=== PATIENT | male | born 1975 | race Caucasian/White ===

== ENCOUNTER 2018-06-10 22:02 | Inpatient (IN) | payer OTHER ==
[~2018-06-10] VITALS: Ht 175.3 cm; Wt 111.1 kg
--- NOTE | ~2018-06-10 | OP ---
[facility] [address] [place] [address] OPERATIVE REPORT Name: JOSIE GOTTI Room: [address] .R.#: [id number] Admission: 06/10/18 Attend Phys: Albino Mclean MD Discharge: Date of : 79 Report #: [id number] THIS REPORT FOR: //name// CC: Albino Gilliam DATE OF SERVICE: 06/12/2018 PREOPERATIVE DIAGNOSIS: Right ureteral stone. POSTOPERATIVE DIAGNOSIS: Right ureteral stone. PROCEDURE PERFORMED: Cystoscopy with right retrograde pyelogram, ureteroscopy, laser lithotripsy and stent placement. SURGEON: Albino Iverson MD ANESTHESIA: General. ESTIMATED BLOOD LOSS: Minimal. COMPLICATIONS: None. INDICATION FOR PROCEDURE: This is a 43-year-old gentleman who presented with acute right flank pain, was admitted to the Emergency Room with an approximately 5 mm right distal ureteral stone. He has been unable to pass it spontaneously. His options for management have been discussed in detail. He has elected to proceed with cystoscopy with right retrograde pyelogram, ureteroscopy, laser lithotripsy and stent placement. The risks, benefits, possible complications were explained in detail to the patient. He has a chance to ask questions, which were answered to his satisfaction and he elects to proceed. DESCRIPTION OF PROCEDURE: After obtaining informed consent, the patient was taken to the operating room and placed in supine position. After adequate general anesthesia and IV antibiotics, he was prepped and draped in the dorsal lithotomy position. A 21-Turkish cystoscope with 30-degree lens was introduced into the urethra, which was normal caliber. Down the prostatic urethra showed mild enlargement. Upon entering the bladder, bladder systematically inspected. There was a stone immediately noticed at the ureterovesical junction, partially into the bladder. No other tumors or diverticula were noted. The stone was attempted to be dislodged using the end of the scope and with the Pollack catheter, but it would not do so, it appeared to be lodged within the distal ureter, so a sensor guidewire was attempted to be passed around the stone. It would not pass easily, so a 200 micron holmium laser fiber was then used to fragment part of the stone. Part of the stone passed proximally into the ureter, so a sensor wire was then easily [place] [address] OPERATIVE REPORT Name: JOSIE GOTTI Room: [address] IN [facility].#: [id number] Admission: 06/10/18 Attend Phys: Albino Mclean MD Discharge: Date of : 79 Report #: [id number] alongside the stone. A retrograde pyelogram was performed using a 5-Turkish open-ended ureteral catheter revealing a normal caliber ureter and no evidence of any pelvic caliectasis. There was a small filling defect in the distal ureter consistent with his known stone. The wire was replaced and rigid ureteroscopy was carried out alongside the wire where the stone fragment was immediately encountered. Using a Zero Tip nitinol basket it was basketed and retrieved atraumatically through the ureter, it was passed off the table and sent to lab for analysis. No other stones or evidence of any ureteral injury was noted on ureteroscopy all the way up to the mid ureter. A 4.8 x 28 cm double-J stent was then passed over the wire into the renal pelvis under fluoroscopic guidance. A good coil was noted overlying the renal pelvis and good coil was directly visualized in the bladder. The bladder was drained. Uro-Jet was applied per urethra and the patient was extubated and taken to recovery room in good condition. Plan is to follow up in 1-2 weeks' time for stent removal. By: [id number] Iverson MD /justin
[2018-06-10 22:13] VITALS: BP 160/96
[2018-06-10] MEDS ORDERED: COUMADIN 1MG TAB1 M1 PO (22:17)
[2018-06-10] MEDS ORDERED: TRAZODONE 150150 M1 PO (22:17)
[2018-06-10 22:23] LABS: URINE BLOOD 3+ (Negative); URINE CLARITY CLOUDY; URINE COLOR BROWN; URINE GLUCOSE-RANDOM NEGATIVE (Negative); URINE KETONES TRACE (Negative); URINE LEUKOCYTES-REFLEX NEGATIVE (Negative); URINE NITRITE-REFLEX NEGATIVE (Negative); URINE PROTEIN 2+ (Negative); URINE SPECIFIC GRAVITY >= 1.030 (1.005-1.030); URINE UROBILINOGEN 0.2 E.U./dl (0.2-1.0)
[2018-06-10 22:25] LABS: ICTOTEST (BILI CONFIRMATORY) Negative (Negative); URINE BILIRUBIN 1+ (Negative)
[2018-06-10 22:26] LABS: URINE RBC >20 Many /HPF (0-2); URINE WBC-REFLEX 0-5 Rare /HPF (0-5)
[2018-06-10 22:28] LABS: SQUAMOUS NONE SEEN /LPF (0-3)
[2018-06-10 22:29] LABS: CRYSTALS None Seen /LPF (None Seen); YEAST-REFLEX Present (None Seen)
[2018-06-10 22:30] LABS: HYALINE CASTS 0-3 Few /LPF (None Seen); MUCUS 0-3 Light strn/LPF (None Seen)
[2018-06-10 22:31] LABS: BACTERIA-REFLEX 1-9 Few /HPF (None Seen)
[2018-06-10 22:38] LABS: HEMATOCRIT 45.8 % (42.0-52.0); HEMOGLOBIN 15.2 gm/dL (14.0-18.0); MCH 28.4 pg (26.0-34.0); MCHC 33.1 g/dL (28.0-37.0); MCV 85.6 fL (80.0-100.0); MPV 7.8 fl. (7.2-11.1); NUCLEATED RBCS 0 /100WBC; PLATELET COUNT* 276 thou/uL (150-400); RBC 5.35 mil/uL (4.50-6.00); WBC 12.4 thou/uL (4.0-11.0)
[2018-06-10 22:49] LABS: PROTIME 20.8 Seconds (9.20-11.50)
[2018-06-10 22:52] LABS: ALBUMIN 2.8 g/dL (3.4-5.0); CALCIUM 6.4 mg/dL (8.5-10.1); CREATININE 0.9 mg/dL (0.6-1.3); POTASSIUM 4.5 mmol/L (3.5-5.1); TOTAL BILIRUBIN 0.2 mg/dL (<0.1-1.0); TOTAL PROTEIN 5.8 g/dL (6.4-8.2)
[2018-06-10] MEDS ORDERED: FLOMAX0.4 MG PO (23:15)
[2018-06-11 00:30] VITALS: BP 160/96
[2018-06-11 00:47] LABS: ABSOLUTE LYMPHOCYTES 0.9 thou/uL (0.8-5.3); ABSOLUTE MONOCYTES 0.6 thou/uL (0.0-1.2); ABSOLUTE NEUTROPHILS 10.9 thou/uL (1.6-8.1)
[2018-06-11 00:48] LABS: PLATELET ESTIMATE ADEQUATE
[2018-06-11 01:00] VITALS: BP 145/84
[2018-06-11 07:45] VITALS: BP 132/82
[2018-06-11 08:03] LABS: HEMATOCRIT 41.5 % (42.0-52.0); HEMOGLOBIN 13.7 gm/dL (14.0-18.0); MCH 28.3 pg (26.0-34.0); MCHC 33.1 g/dL (28.0-37.0); MCV 85.4 fL (80.0-100.0); MPV 7.7 fl. (7.2-11.1); RBC 4.86 mil/uL (4.50-6.00); WBC 9.8 thou/uL (4.0-11.0)
[2018-06-11 08:11] LABS: CALCIUM 7.8 mg/dL (8.5-10.1); CREATININE 1.2 mg/dL (0.6-1.3); MAGNESIUM 1.8 mg/dL (1.8-2.4); POTASSIUM 4.2 mmol/L (3.5-5.1); PROTIME 20.4 Seconds (9.20-11.50)
[2018-06-11 16:45] VITALS: BP 111/62
[2018-06-12 05:15] LABS: HEMATOCRIT 41.6 % (42.0-52.0); HEMOGLOBIN 13.7 gm/dL (14.0-18.0); MCH 28.3 pg (26.0-34.0); MCHC 33.1 g/dL (28.0-37.0); MCV 85.5 fL (80.0-100.0); RBC 4.86 mil/uL (4.50-6.00); RDW-CV 15.2 % (10.5-14.5)
[2018-06-12 05:20] LABS: INR 1.7; PROTIME 17.3 Seconds (9.20-11.50)
[2018-06-12 05:40] LABS: CALCIUM 7.8 mg/dL (8.5-10.1); CREATININE 1.1 mg/dL (0.6-1.3); POTASSIUM 4.4 mmol/L (3.5-5.1)
[2018-06-12 08:00] VITALS: BP 113/78
[2018-06-12 09:50] VITALS: BP 113/78
[2018-06-12 09:54] VITALS: BP 113/78
[2018-06-12 17:45] VITALS: BP 127/78
[2018-06-12] MEDS ORDERED: NORCO 5-325 TA1 EACH PO (17:51)
[2018-06-12] MEDS ORDERED: LEVSIN0.125 MG PO (17:51)
[2018-06-12] MEDS ORDERED: PHENAZOPYRIDIN200 M2 PO (17:52)
[2018-06-12 21:30] VITALS: BP 130/72
[2018-06-13] VITALS: BP 104/61
[2018-06-13 09:07] VITALS: BP 110/64
[2018-06-13 10:07] VITALS: BP 113/78
[2018-06-13 10:09] VITALS: BP 113/78
[2018-06-13 11:41] VITALS: BP 113/78
== END 2018-06-13 11:35 | disposition home or self-care (01) | DRG 660 ==
LOC: M.ERS 22:02 → M.3W 23:58 → M.TBA-ER 23:58 → M.3W 06-11 00:45
PROVIDERS: Nurse Practitioner Family; ADMIT Internal Medicine
PROC: 0T768DZ Dilation of Right Ureter with Intraluminal Device, Via Natural or Artificial Opening Endoscopic (ICD-10-PCS; principal; 2018-06-12)
PROC: BT1D1ZZ Fluoroscopy of Right Kidney, Ureter and Bladder using Low Osmolar Contrast (ICD-10-PCS; principal; 2018-06-12)
PROC: 0TC68ZZ Extirpation of Matter from Right Ureter, Via Natural or Artificial Opening Endoscopic (ICD-10-PCS; principal; 2018-06-12)
DX: N13.2 Hydronephrosis with renal and ureteral calculous obstruction (principal); D68.59 Other primary thrombophilia; D62 Acute posthemorrhagic anemia; R31.0 Gross hematuria; Z86.718 Personal history of other venous thrombosis and embolism; Z87.891 Personal history of nicotine dependence; Z86.711 Personal history of pulmonary embolism; Z79.899 Other long term (current) drug therapy